=== PATIENT | female | born 1995 | race Caucasian/White ===

== ENCOUNTER 2017-08-26 16:26 | Inpatient (IN) ==
--- NOTE | 2017-08-26 16:43 | OB/GYN History & Physical ---
Date of Encounter: 08/26/17 Time of Encounter: 16:40 Assessment and Plan (1) and not yet delivered in third trimester Current visit: Yes Status: Acute (2) Modified White class B pregestational diabetes mellitus Current visit: Yes Status: Acute (3) Gestational hypertension Current visit: Yes Status: Acute Qualifiers: Trimester: third trimester Qualified Code(s): O13.3 - Gestational [ -induced] hypertension without significant proteinuria, third trimester (4) 38 weeks gestation of Current visit: No Status: Acute (5) Positive GBS test Current visit: Yes Status: Acute Penicillin 5 million units IV piggyback started will then due to 0.5 mg every 4 hours until delivery History of Present Illness HPI: Ms. Stevenson is a 22 year old female 5 para 1031 at 38-0/7 weeks who was sent in from the office for induction of labor due to hypertension proteinuria decreased movements and being a class B diabetic. Patient has been getting twice a week NSTs she had an NST last week where she complained of decreased movement the NST was reassuring but not that reactive she did not want to come to [facility] for a ultrasound for biophysical she was given kick counts and instructed to follow up today for another NST, this was performed today and was nonreactive again biophysical profile was 8 out of 8 however. Patient states she is just not really feeling the baby move. Patient is also complaining of some headaches does go into some Tylenol occasional blurred vision. Patient blood pressure was elevated with systolics of 156/74 she has gained 2-3 pounds since last and she is spilling protein today. She is not spilling any protein up until this point. Patient was a good 5-6 cm 80% 0 station also. This is a change from last week and a change from 1 week ago. This case was discussed with Dr. Chadwick who agreed due to the hypertension and the proteinuria the patient needs to be delivered. She denies any leaking of fluid but has been having a lot of back pain. Past Med Surg Social Fam HX - Past Medical History Source: patient, old records reviewed Medical history: diabetes (Type II diet controlled), hypertension Psychiatric history: no psych history - Past Surgical History Surgical History: other (Cyst removed from sternum) - Social History Smoking Status: Current every day smoker Smokeless Tobacco Status: No Alcohol use: none Drug use: none, marijuana (history) Occupational status: employed Current living situation: Home - Independent Activity Level: Independent ambulation Recent Out of Country Travel Within the Last 8 Weeks: No Exposure or Possible Exposure to Illness During Travel: No - Family History Mother Adopted: No Family Member Ethnicity: Non- Living Status: Still Living Hx Family Cardiac Disorders: Yes (htn) Hx Family Respiratory Disorders: No Hx Family Cancer: Yes (colon) Hx Family GI Disorders: No Hx Family Endocrine Disorder: No Hx Family Neuromuscular Disorders: No Hx Family Neurologic Disorders: No Hx Family HEENT Disorders: No Hx Family Autoimmune Disorders: No Obstetrical History - Pregnancies : 5 Para: 1 Term: 1 : 0 Ab's: 3 Livin Medications and Allergies Caplet 1 tab PO DAILY 01/09/16 [History] 3 Allergy/AdvReac Type Severity Reaction Status Date / Time acetaminophen [From Tylenol] Allergy Itching Verified 08/26/17 17:12 Review of System OB All systems PM: reviewed and no additional remarkable complaints except as stated - Eyes Eyes: bilateral: blurred vision (With scotoma) - Neurological Nerological: headache(s) Exam - Constitutional Constitutional: well developed, well nourished, mild distress - HEENT HEENT: EOMI, PERRL - Neck Neck exam: full ROM - Lungs Respiratory exam: CTAB - Abdomen Abdomen: Present: bowel sounds normal, gravid - Cervix Dilation: 5 Effacement: 80 Station: 0 - Uterus Uterus exam: Present: normal size Results Result Diagrams: 08/26/17 16:58 08/26/17 16:58 All other labs normal.
[2017-08-26] MEDS ORDERED: Famotidine 20 MG/2 ML VIAL IVP PRN ×2 (16:54→16:55)
[2017-08-26] MEDS ORDERED: Naloxone 0.4 MG/ML INJ IVP PRN ×2 (16:54→16:55)
[2017-08-26] MEDS ORDERED: *HR* Nalbuphine 20 MG/ML AMPUL IVP PRN (16:55)
[2017-08-26] MEDS ORDERED: Penicillin G Potassium 5,000,000 UNIT in 0.9 % Sodium Chloride Mini Bag 100 ML IVPB ONE (16:57)
[2017-08-26] MEDS ORDERED: Ringers Solution, Lactated 1,000 ML IVC SCH (17:00)
[2017-08-26 17:20] LABS: Basophils % 0.1 %; Eosinophils # 0.1 K/mcL (0.0-0.6); Eosinophils % 0.7 %; Hematocrit 39.6 % (35.3-44.9); Hemoglobin 13.5 g/dL (11.5-15.4); Immature Granulocytes % 0.4 % (0-4); Lymphocytes # 3.9 K/mcL (0.6-4.6); Lymphocytes % 23.3 %; Mean Corpuscular HGB Conc 34.1 g/dL (31.6-35.5); Mean Corpuscular Hemoglobin 29.7 pg (28.0-33.3); Mean Corpuscular Volume 87.2 fL (83.0-100.0); Mean Platelet Volume 10.8 fL (9.4-12.4); Monocytes # 1.3 K/mcL (0.0-1.3); Monocytes % 7.6 %; Neutrophils # 11.4 K/mcL (1.6-8.9); Platelet Count 253 K/mcL (140-400); Red Blood Count 4.54 M/mcL (3.82-4.97); Red Cell Distribution Width 13.3 % (11.5-14.5); Segmented Neutrophils % 67.9 %
[2017-08-26] MEDS: Ringers Solution, Lactated 1,000 ML IVC SCH ×2 (17:30→21:22)
[2017-08-26 17:52] LABS: Glucose 116 mg/dL (70-105)
[2017-08-26 19:02] LABS: Amphetamine Screen,Urine Negative ng/mL (Cutoff=1000); Barbiturate Screen,Urine Negative ng/mL (Cutoff=200); Benzodiazepines Screen,Urine Negative ng/mL (Cutoff=200); Cannabinoid Screen,Urine Negative ng/mL (Cutoff = 50); Cocaine Screen,Urine Negative ng/mL (Cutoff= 300); Opiate Screen,Urine Negative ng/mL (Cutoff=300); Phencyclidine Screen,Urine Negative ng/mL (Cutoff=25)
[2017-08-26 19:29] LABS: Alanine Aminotransferase 11 Units/L (7-52); Aspartate Amino Transferase 14 Units/L (13-39); BUN/Creatinine Ratio 15 (6-26); Blood Urea Nitrogen 8 mg/dL (6-20); Lactate Dehydrogenase 168 Units/L (140-271); Uric Acid 4.5 mg/dL (2.3-7.6); eGFR For African Americans > 60 (> 60); eGFR For Non-African Americans > 60 (> 60)
--- NOTE | 2017-08-26 19:56 | OB Labor Progress Note ---
Date of Encounter: 08/26/17 Time of Encounter: 19:50 Labor Progress Note - Subjective Subjective: Patient states she is getting uncomfortable still doing well - Cervix Cervix: 6/80/+1 - Heart Tones Heart Tones: heart tones 140s reactive - [place]: Contractions none seen at this time but states it coming every 3-5 minutes - Plan Plan: With the patient under epidural once comfortable and close to 4 hours we will artificially rupture
[2017-08-26] MEDS ORDERED: Epidural Premix (fent/bupiv) 110 ML EP ONE (20:14)
[2017-08-26] MEDS ORDERED: Epidural Premix (fent/bupiv) 110 ML EP SCH (20:15)
[2017-08-26] MEDS ORDERED: Bupivacaine-MPF 0.25% 10 ML VIAL ONE (20:15)
--- NOTE | 2017-08-26 20:22 | Anesthesia Evaluation PreOp ---
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: Denies Any Significant HX Other Medical History: Denies Any Significant HX, Diabetes Type II Anesthesia History: No Prior Anesthetic Complications : Yes (38) Test: Positive Alcohol Use: none Drug use: none Medications and Allergies Caplet 1 tab PO DAILY 01/09/16 [History] 3 Allergy/AdvReac Type Severity Reaction Status Date / Time acetaminophen [From Tylenol] Allergy Itching Verified 08/26/17 17:12 - Meds/Allergy Pre-op Review Medications Reviewed: Yes Allergies Reviewed: Yes (TYLENOL) Beta Blockers on Current Med List: No Anesthesia Results - Labs 08/26/17 16:58 08/26/17 16:58 Anesthesia Exam - HEENT Pupil (Motor): Pupils equal Mallampati: II Teeth: Normal, Edentulous Oral Opening: Greater than 3 - MOLDING MACHINE OPERATOR LOC: Oriented MOLDING MACHINE OPERATOR Motor: Normal RUE, Normal LUE, Normal RLE, Normal LLE, Normal Face MOLDING MACHINE OPERATOR Sensory: Normal: RUE, LUE, RLE, LLE, Face - Cardiac Rhythm: Regular Murmur: None JVD: No Carotid Bruit: No - Pulmonary Breath Sounds: bilateral Clear Respiratory Effort: Symmetrical Anesthesia Assess/Plan ASA Score: 2 Modified [place] Scale for Level of Consciousness: Cooperative, oriented, and tranquil Anesthetic Plan: Regional Autologous Blood: No Monitoring Plan: Standard Monitors
--- NOTE | 2017-08-26 20:26 | Anesthesia Procedures ---
Date of Encounter: 08/26/17 Time of Encounter: 20:30 Procedures: Anesthesia - Epidural/Spinal Patient ID/Chart reviewed: Yes Patient examined: Yes OB Eval: Gestational age: 38 OB Eval: : 5 OB Eval: Hx Para: 1 OB Eval: Dilated at (cm): 6 OB Eval: Contractions: Non-stressed pattern Consent Obtained: Yes Supplemental Oxygen: None/Room Air Site Prep: Aseptic Technique, Sterile prep and drape, Povidone-Iodine 1% Patient position: upright Amount of Local Anesthetic used: 3 Touhy Needle Gauge: 18 Touhy Needle Depth (cm): 5 Catheter Depth at Skin (cm): 6 Test Dose (1.5% Lido + Epi): Volume given (mls): 3 Test Dose Result: Negative Loading Dose: 0.25% Marcaine (mls): 20 Loading Dose Administered: Thru Catheter Infusion Rate (mls/hr): [address]: Tegaderm, Tape Interspace Used: L3-L4 Loss of Resistance (MANDIE): Yes Blood: No CSF: No Paresthesia: No Vitals + FHT's: stable throughout procedure. see nursing notes. placed per Dr. Motnoya
--- NOTE | 2017-08-26 21:05 | OB Labor Progress Note ---
Date of Encounter: 08/26/17 Time of Encounter: 21:00 Labor Progress Note - Subjective Subjective: comfortable after epidural - Cervix Cervix: 6-7/80/+1 AROM clear fluid - Heart Tones Heart Tones: FHT's 140's reactive - [place]: contractions every 2-3 min - Plan Plan: anticipate
[2017-08-26] MEDS: Penicillin G Potassium 2,500,000 UNIT in 0.9 % Sodium Chloride 100 ML IVPB SCH (21:22)
[2017-08-27] MEDS ORDERED: Oxytocin 20 units/ LR 1000 mL 20 UNIT/1,000 ML BAG IVC SCH ×2 (00:15→02:52)
[2017-08-27] MEDS: Penicillin G Potassium 2,500,000 UNIT in 0.9 % Sodium Chloride 100 ML IVPB SCH (00:57)
--- NOTE | 2017-08-27 02:40 | OB/GYN Procedure Note ---
Delivery - Delivery Date: 08/27/17 Provider: Tremayne Marquez Intrapartum events: none Delivery augmentation: rupture of membranes, pitocin Delivery monitor: external FHT, external uterine Anesthesia: epidural Estimated Blood Loss: 200 - (s) Infant A Delivery Date: 08/27/17 Delivery Time: 02:00 Presentation: vertex Position: [place]ORE Route of delivery: Gender: Female Viability: Viable Pounds: 7 Ounces: 6 Weight Gram: 3.35 kg at 1 minute: 8 at 5 mins: 9 Shoulder Dystocia: not encountered Specimens collected: cord blood Placenta: retained, complete extraction Cord: 3 umbilical vessels - Repair Episiotomy: none Laceration Description: Periurethral (right) - Complications Delivery complications: retained placenta - Comments Comments: viable female infant in THE[place] presentation 0200. 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 Retained placenta with manual extraction of the placenta required, uterus was explored no retained placenta palpated after removal. small right periurethral laceration noted repaired with 4 0 vicryl, cervix vagina and perineum intact, EBL 200 cc.
[2017-08-27] MEDS ORDERED: Acetaminophen 325 MG TABLET PO PRN (02:52)
[2017-08-27] MEDS ORDERED: Measles/Mumps/Rubella Vacc 0.5 ML VIAL SQ PRN (02:52)
[2017-08-27 06:35] LABS: Basophils % 0.1 %; Eosinophils # 0.1 K/mcL (0.0-0.6); Eosinophils % 0.6 %; Hematocrit 36.5 % (35.3-44.9); Hemoglobin 12.4 g/dL (11.5-15.4); Immature Granulocytes % 0.4 % (0-4); Immature Platelets 7.6 % (1.1-6.1); Lymphocytes # 4.2 K/mcL (0.6-4.6); Lymphocytes % 18.9 %; Mean Corpuscular Volume 88.2 fL (83.0-100.0); Mean Platelet Volume 10.6 fL (9.4-12.4); Monocytes % 4.6 %; Neutrophils # 16.7 K/mcL (1.6-8.9); Platelet Count 222 K/mcL (140-400); Red Blood Count 4.14 M/mcL (3.82-4.97); Red Cell Distribution Width 13.4 % (11.5-14.5); Segmented Neutrophils % 75.4 %
[2017-08-27 06:54] LABS: Alanine Aminotransferase 10 Units/L (7-52); Aspartate Amino Transferase 12 Units/L (13-39); BUN/Creatinine Ratio 13 (6-26); Blood Urea Nitrogen 8 mg/dL (6-20); Lactate Dehydrogenase 154 Units/L (140-271); Uric Acid 4.1 mg/dL (2.3-7.6); eGFR For African Americans > 60 (> 60); eGFR For Non-African Americans > 60 (> 60)
[2017-08-27] MEDS ORDERED: CeFAZolin Syringe 2,000MG/20 ML SYR IVPB SCH (08:00)
[2017-08-27] MEDS: Ibuprofen 600 MG TABLET PO PRN ×2 (08:44→15:51)
[2017-08-27] MEDS: Prenatal Vit/FA 1 EACH TABLET PO SCH (08:44)
[2017-08-27] MEDS ORDERED: NON-FORMULARY MEDICATION 1 EACH EACH (Prenatal Caplet 1 TAB) PO SCH (09:00)
[2017-08-27] MEDS ORDERED: CeFAZolin Premix DUPLEX 2,000 MG/50 ML BAG IVPB SCH ×2 (12:00→16:00)
[2017-08-28 08:21] VITALS: BP 114/70
--- NOTE | 2017-08-28 10:39 | Discharge Summary ---
Date of Encounter: 08/28/17 Time of Encounter: 10:37 - Discharge Diagnosis (1) Vaginal delivery Priority: Primary Status: Acute Comments: Pt states pain well managed on po pain medication, tolerates po diet, voiding, desires discharge. - Discharge Medications Prescriptions: Ibuprofen [Motrin] 600 mg PO Q6HR PRN #60 tablet PRN Reason: Cramping Docusate [Colace] 100 mg PO BID #60 capsule Home Medications: Caplet 1 tab PO DAILY 01/09/16 [History] Acetaminophen [Tylenol] 650 mg PO Q6HR PRN tablet 08/28/17 [Rx] Docusate [Colace] 100 mg PO BID #60 capsule 08/28/17 [Rx] Ibuprofen [Motrin] 600 mg PO Q6HR PRN #60 tablet 08/28/17 [Rx] Vit/FA 1 each PO DAILY tablet 08/28/17 [Rx] Allergies/Adverse Reactions: 3 Allergy/AdvReac Type Severity Reaction Status Date / Time acetaminophen [From Tylenol] Allergy Itching Verified 08/26/17 17:12 Data Procedures and tests throughout hospitalization: Laboratory Tests 08/26/17 08/26/17 08/26/17 16:58 16:58 18:25 WBC 16.8 H RBC 4.54 Hgb 13.5 Hct 39.6 MCV 87.2 MCH 29.7 MCHC 34.1 RDW 13.3 Plt Count 253 MPV 10.8 Immature Gran % 0.4 Seg Neutrophils % 67.9 Lymphocytes % 23.3 Monocytes % 7.6 Eosinophils % 0.7 Basophils % 0.1 Neutrophils # 11.4 H Lymphocytes # 3.9 Monocytes # 1.3 Eosinophils # 0.1 Basophils # 0.0 Immature Plt Fraction BUN 8 Creatinine 0.53 L Est GFR ( Amer) > 60 Est GFR (Non-Af Amer) > 60 BUN/Creatinine Ratio 15 Glucose 116 H Uric Acid 4.5 AST 14 ALT 11 Lactate Dehydrogenase 168 Urine Opiates Screen Negative Ur Barbiturates Screen Negative Ur Phencyclidine Scrn Negative Ur Amphetamines Screen Negative U Benzodiazepines Scrn Negative Urine Cocaine Screen Negative U Marijuana (THC) Screen Negative 08/27/17 08/27/17 06:25 06:25 WBC 22.2 H RBC 4.14 Hgb 12.4 Hct 36.5 MCV 88.2 MCH 30.0 MCHC 34.0 RDW 13.4 Plt Count 222 MPV 10.6 Immature Gran % 0.4 Seg Neutrophils % 75.4 Lymphocytes % 18.9 Monocytes % 4.6 Eosinophils % 0.6 Basophils % 0.1 Neutrophils # 16.7 H Lymphocytes # 4.2 Monocytes # 1.0 Eosinophils # 0.1 Basophils # 0.0 Immature Plt Fraction 7.6 H BUN 8 Creatinine 0.61 Est GFR ( Amer) > 60 Est GFR (Non-Af Amer) > 60 BUN/Creatinine Ratio 13 Glucose Uric Acid 4.1 AST 12 L ALT 10 Lactate Dehydrogenase 154 Urine Opiates Screen Ur Barbiturates Screen Ur Phencyclidine Scrn Ur Amphetamines Screen U Benzodiazepines Scrn Urine Cocaine Screen U Marijuana (THC) Screen Date of admission: 08/26/17 16:26 Primary care physician: PCP NASEEM Consults: 08/27/17 02:52 Consult to Inside Outside Sales Representative [CONS] Routine Comment: Vaginal delivery, consult needed Discharging clinician: Lory Schreiber Anticipated date of discharge: 08/28/17 - Patient Status Disposition: Home, Self-Care Condition: Good Functional capacity at discharge: independent ambulation Overall status at discharge: patient is back to baseline - Discharge Instructions Follow Up With: NASEEM,PCP [Primary Care Provider] - Tremayne Marquez, DO [Partnered Physician] - - Diet and Activity Activity: resume usual activities as tolerated Diet: regular diet Hospital Course Reason for admission: IUP at term Delivery: Episiotomy: none Laceration: other (Periurethral) Other procedures: none complications: retained placenta (Manual extraction of placenta at delivery) Discharge diagnosis: IUP at term delivered baby: female Hospital course: Delivery - Delivery Date: 08/27/17 Provider: Tremayne Marquez Intrapartum events: none Delivery augmentation: rupture of membranes, pitocin Delivery monitor: external FHT, external uterine Anesthesia: epidural Estimated Blood Loss: 200 - (s) A Delivery Date: 08/27/17 Delivery Time: 02:00 Presentation: vertex Position: [place] Route of delivery: Gender: Female Viability: Viable Pounds: 7 Ounces: 6 Weight Gram: 3.35 kg at 1 minute: 8 at 5 mins: 9 Shoulder Dystocia: not encountered Specimens collected: cord blood Placenta: retained, complete extraction Cord: 3 umbilical vessels - Repair Episiotomy: none Laceration Description: Periurethral (right) - Complications Delivery complications: retained placenta Stable in , and appropriate for discharge Time Attestation: Total time spent providing and/or coordinating discharge services: Time Spent: Less than 30 minutes Exam - Constitutional Vitals: Temp Pulse Resp BP Pulse Ox 98.1 F 92 16 114/70 98 08/28/17 07:45 08/28/17 07:45 08/28/17 07:45 08/28/17 07:45 08/28/17 07:45 General appearance IM: A&O X 3 - Respiratory Respiratory exam: Present: CTAB - Cardiovascular Cardiovascular exam IM: Present: RRR - GI/Abdominal GI/Abdominal exam IM: normal bowel sounds, soft - Uterine Tone: Firm Uterus Position: At Umbilicus - Extremities Exam Extremities exam IM: Present: normal capillary refill, normal inspection - Neurological Exam Neurological exam: normal gait, oriented X3 - Psychiatric Additional comments: Reports good mood,
[2017-08-28] MEDS: Prenatal Vit/FA 1 EACH TABLET PO SCH (11:03)
[2017-08-28] MEDS: Ibuprofen 600 MG TABLET PO PRN (11:03)
== END 2017-08-28 12:45 | disposition home or self-care (01) | DRG 774 ==
LOC: 1NENULAB 16:26 → 1NENUOBS 08-27 05:16
PROVIDERS: ADMIT Obstetrics & Gynecology; ATTEND Obstetrics & Gynecology

== ENCOUNTER 2019-04-16 10:00 | Inpatient (IN) ==
[2019-04-16] MEDS ORDERED: Famotidine 20 MG/2 ML VIAL IVP PRN (11:52)
[2019-04-16] MEDS ORDERED: Naloxone 0.4 MG/ML INJ IVP PRN (11:52)
[2019-04-16] MEDS ORDERED: Lidocaine 1% 20 ML MDV INFILT PRN (11:52)
[2019-04-16] MEDS ORDERED: Ondansetron 4 MG/2 ML VIAL IVP PRN (11:52)
[2019-04-16] MEDS ORDERED: Metoclopramide 10 MG/2 ML VIAL IVP PRN (11:52)
[2019-04-16] MEDS ORDERED: miSOPROStol 25 MCG TABLET PO STA (12:09)
[2019-04-16 13:04] LABS: Basophils % 0.1 %; Eosinophils # 0.2 K/mcL (0.0-0.6); Eosinophils % 1.2 %; Hematocrit 39.7 % (35.3-44.9); Hemoglobin 13.4 g/dL (11.5-15.4); Immature Granulocytes % 0.4 % (0-4); Lymphocytes # 2.6 K/mcL (0.6-4.6); Lymphocytes % 17.9 %; Mean Corpuscular HGB Conc 33.8 g/dL (31.6-35.5); Mean Corpuscular Volume 88.8 fL (83.0-100.0); Mean Platelet Volume 10.2 fL (9.4-12.4); Monocytes # 1.2 K/mcL (0.0-1.3); Neutrophils # 10.4 K/mcL (1.6-8.9); Platelet Count 269 K/mcL (140-400); Red Blood Count 4.47 M/mcL (3.82-4.97); Red Cell Distribution Width 12.8 % (11.5-14.5); Segmented Neutrophils % 72.4 %; White Blood Count 14.3 K/mcL (4.3-11.1)
[2019-04-16 13:13] LABS: Amphetamine Screen,Urine Negative ng/mL (Cutoff=1000); Barbiturate Screen,Urine Negative ng/mL (Cutoff=200); Benzodiazepines Screen,Urine Negative ng/mL (Cutoff=200); Cannabinoid Screen,Urine Negative ng/mL (Cutoff = 50); Cocaine Screen,Urine Negative ng/mL (Cutoff= 300); Opiate Screen,Urine Negative ng/mL (Cutoff=300); Phencyclidine Screen,Urine Negative ng/mL (Cutoff=25)
[2019-04-16] MEDS ORDERED: 0.9 % Sodium Chloride 1,000 ML ONE (15:25)
[2019-04-16] MEDS ORDERED: Oxytocin 20 units/ LR 1000 mL 20 UNIT/1,000 ML BAG IVC SCH (15:30)
[2019-04-16] MEDS ORDERED: Epidural Premix (fent/bupiv) 110 ML EP SCH (18:15)
[2019-04-16] MEDS ORDERED: *HR* Nalbuphine 10 MG/ML AMPUL IV PRN (18:33)
[2019-04-16] MEDS ORDERED: Ropivacaine/PF 0.2% 20 ML VIAL ONE (19:55)
[2019-04-16] MEDS ORDERED: *HR* FentaNYL (PF) 100 MCG/2 ML VIAL ONE (19:55)
[2019-04-17] MEDS ORDERED: Oxytocin 20 units/ LR 1000 mL 20 UNIT/1,000 ML BAG IVC SCH (00:24)
[2019-04-17] MEDS ORDERED: Measles/Mumps/Rubella Vacc 0.5 ML VIAL SQ PRN (00:24)
[2019-04-17] MEDS: Ringers Solution, Lactated 1,000 ML IVC SCH ×2 (00:51→07:48)
[2019-04-17 07:29] LABS: Basophils % 0.1 %; Eosinophils # 0.2 K/mcL (0.0-0.6); Eosinophils % 1.4 %; Hematocrit 40.7 % (35.3-44.9); Hemoglobin 13.5 g/dL (11.5-15.4); Immature Granulocytes % 0.6 % (0-4); Lymphocytes # 4.1 K/mcL (0.6-4.6); Lymphocytes % 25.6 %; Mean Corpuscular HGB Conc 33.2 g/dL (31.6-35.5); Mean Corpuscular Volume 90.4 fL (83.0-100.0); Mean Platelet Volume 10.1 fL (9.4-12.4); Monocytes # 1.3 K/mcL (0.0-1.3); Neutrophils # 10.2 K/mcL (1.6-8.9); Platelet Count 244 K/mcL (140-400); Segmented Neutrophils % 64.3 %; White Blood Count 15.9 K/mcL (4.3-11.1)
[2019-04-17] MEDS: Ibuprofen 600 MG TABLET PO PRN ×2 (07:46→16:05)
[2019-04-17] MEDS ORDERED: Ringers Solution, Lactated 1,000 ML ONE (07:47)
[2019-04-17] MEDS ORDERED: Morphine Sulfate 2 MG/ML SYRINGE IVP PRN (08:04)
[2019-04-17] MEDS ORDERED: *HR* HYDROcodone/Acet 5/325 mg TABLET PO PRN (08:04)
[2019-04-17] MEDS ORDERED: Prenatal Vit/FA 1 EACH TABLET PO SCH (09:00)
[2019-04-17] MEDS ORDERED: *HR* FentaNYL (PF) 100 MCG/2 ML VIAL ONE (10:04)
[2019-04-17] MEDS ORDERED: Lidocaine -MPF 2% 2 ML VIAL ONE (10:04)
[2019-04-17] MEDS ORDERED: *HR* Midazolam HCl 2 MG/2 ML VIAL ONE (10:04)
[2019-04-17] MEDS ORDERED: *HR* Propofol 200 MG/20 ML VIAL IVP ONE (10:04)
[2019-04-17] MEDS ORDERED: Dexamethasone 4 MG/ML VIAL ONE (10:06)
[2019-04-17 16:32] VITALS: BP 117/77
== END 2019-04-17 21:45 | disposition home or self-care (01) | DRG 806 ==
LOC: 1NENULAB 11:19 → 1NENUOBS 04-17 01:11
PROVIDERS: ADMIT Obstetrics & Gynecology; ATTEND Obstetrics & Gynecology

== ENCOUNTER → 2022-01-22 13:10 | Observation (INO) ==
[2022-01-22 12:28] LABS: Basophils % 0.1 %; Eosinophils # 0.2 K/mcL (0.0-0.6); Eosinophils % 1.2 %; Hematocrit 40.7 % (35.3-44.9); Hemoglobin 14.1 g/dL (11.5-15.4); Immature Granulocytes % 0.7 % (0-4); Lymphocytes # 3.6 K/mcL (0.6-4.6); Lymphocytes % 24.7 %; Mean Corpuscular HGB Conc 34.6 g/dL (31.6-35.5); Mean Corpuscular Hemoglobin 29.9 pg (28.0-33.3); Mean Corpuscular Volume 86.2 fL (83.0-100.0); Mean Platelet Volume 10.5 fL (9.4-12.4); Monocytes # 1.2 K/mcL (0.0-1.3); Monocytes % 8.1 %; Neutrophils # 9.5 K/mcL (1.6-8.9); Platelet Count 276 K/mcL (140-400); Red Blood Count 4.72 M/mcL (3.82-4.97); Red Cell Distribution Width 13.2 % (11.5-14.5); Segmented Neutrophils % 65.2 %; White Blood Count 14.7 K/mcL (4.3-11.1)
[2022-01-22 13:01] LABS: Protein/Creatinine Ratio,Urine 0.31 mg/mg (0.00-0.20)
[2022-01-22 13:18] LABS: Alanine Aminotransferase 8 Units/L (7-52); Aspartate Amino Transferase 15 Units/L (13-39); BUN/Creatinine Ratio 11 (6-26); Blood Urea Nitrogen 6 mg/dL (6-20); Lactate Dehydrogenase 161 Units/L (140-271); Uric Acid 4.9 mg/dL (2.3-7.6); eGFR For African Americans > 60 (> 60); eGFR For Non-African Americans > 60 (> 60)
== END | disposition home or self-care (01) ==
LOC: 1NENULAB
PROVIDERS: ADMIT Obstetrics & Gynecology; ATTEND Obstetrics & Gynecology

== ENCOUNTER 2022-02-02 06:08 | Inpatient (IN) ==
[2022-02-02] MEDS ORDERED: Azithromycin 500 MG in 0.9 % Sodium Chloride 250 ML IVPB PRN (06:22)
[2022-02-02] MEDS ORDERED: *HR* Nalbuphine 10 MG/ML AMPUL IV PRN (06:22)
[2022-02-02] MEDS ORDERED: Naloxone 0.4 MG/ML INJ IVP PRN (06:22)
[2022-02-02] MEDS ORDERED: Ondansetron 4 MG/2 ML VIAL IVP PRN (06:22)
[2022-02-02] MEDS ORDERED: *HR* FentaNYL (PF) 100 MCG/2 ML VIAL IVP PRN (06:22)
[2022-02-02] MEDS ORDERED: Metoclopramide 10 MG/2 ML VIAL IVP PRN (06:22)
[2022-02-02] MEDS ORDERED: Famotidine 20 MG/2 ML VIAL IVP PRN (06:22)
[2022-02-02] MEDS ORDERED: miSOPROStoL 25 MCG TABLET PO PRN (06:24)
[2022-02-02 06:56] LABS: Basophils % 0.1 %; Eosinophils # 0.2 K/mcL (0.0-0.6); Hemoglobin 13.7 g/dL (11.5-15.4); Immature Granulocytes % 0.5 % (0-4); Lymphocytes # 4.6 K/mcL (0.6-4.6); Lymphocytes % 30.1 %; Mean Corpuscular HGB Conc 34.3 g/dL (31.6-35.5); Mean Corpuscular Hemoglobin 29.7 pg (28.0-33.3); Mean Corpuscular Volume 86.8 fL (83.0-100.0); Mean Platelet Volume 10.6 fL (9.4-12.4); Monocytes % 6.4 %; Neutrophils # 9.5 K/mcL (1.6-8.9); Platelet Count 260 K/mcL (140-400); Red Blood Count 4.61 M/mcL (3.82-4.97); Red Cell Distribution Width 13.4 % (11.5-14.5); Segmented Neutrophils % 61.9 %; White Blood Count 15.3 K/mcL (4.3-11.1)
[2022-02-02] MEDS ORDERED: Penicillin G Potassium 5,000,000 UNIT in 0.9 % Sodium Chloride Mini Bag 100 ML IVPB ONE (07:02)
[2022-02-02] MEDS: Ringers Solution, Lactated 1,000 ML IVC SCH ×2 (07:31→14:50)
[2022-02-02] MEDS ORDERED: EPHEDrine 50 MG/ML VIAL IVP PRN (08:09)
[2022-02-02] MEDS ORDERED: Epidural Premix (fent/bupiv) 110 ML EP SCH (08:15)
[2022-02-02] MEDS ORDERED: *HR* Phenylephrine 10 MG/ML VIAL ONE (09:45)
[2022-02-02 11:00] LABS: Amphetamine Screen,Urine Negative ng/mL (Cutoff=1000); Barbiturate Screen,Urine Negative ng/mL (Cutoff=200); Benzodiazepines Screen,Urine Negative ng/mL (Cutoff=200); Cannabinoid Screen,Urine Negative ng/mL (Cutoff = 50); Cocaine Screen,Urine Negative ng/mL (Cutoff= 300); Opiate Screen,Urine Negative ng/mL (Cutoff=300); Phencyclidine Screen,Urine Negative ng/mL (Cutoff=25)
[2022-02-02] MEDS: Penicillin G Potassium 2,500,000 UNIT/105 ML MLS IVPB SCH ×2 (11:08→14:50)
[2022-02-02] MEDS ORDERED: Oxytocin 30 UNIT/503 ML BAG IVC SCH ×2 (14:00→21:30)
[2022-02-02] MEDS ORDERED: Ondansetron ODT 4 MG TAB.RAPDIS SL PRN (21:30)
[2022-02-02] MEDS ORDERED: Lanolin 7 G OINT...G. TP PRN (21:30)
[2022-02-02] MEDS ORDERED: OXYTOCIN/RINGERS LACTATE 10 UNIT/166.6 ML BAG IVC ONE (21:30)
[2022-02-02] MEDS ORDERED: Benzocaine/Menthol 56 GM AEROSOL SPRAY TP PRN (21:30)
[2022-02-02] MEDS: Ibuprofen 600 MG TABLET PO SCH (22:00)
[2022-02-02] MEDS: Acetaminophen 325 MG TABLET PO SCH (22:00)
[2022-02-03 04:55] VITALS: O2SAT 97
[2022-02-03 05:04] LABS: Basophils % 0.2 %; Eosinophils # 0.2 K/mcL (0.0-0.6); Eosinophils % 0.9 %; Hematocrit 39.5 % (35.3-44.9); Hemoglobin 13.5 g/dL (11.5-15.4); Immature Granulocytes % 0.5 % (0-4); Lymphocytes # 5.1 K/mcL (0.6-4.6); Lymphocytes % 27.6 %; Mean Corpuscular HGB Conc 34.2 g/dL (31.6-35.5); Mean Corpuscular Hemoglobin 29.8 pg (28.0-33.3); Mean Corpuscular Volume 87.2 fL (83.0-100.0); Mean Platelet Volume 10.3 fL (9.4-12.4); Monocytes # 1.5 K/mcL (0.0-1.3); Monocytes % 8.1 %; Neutrophils # 11.6 K/mcL (1.6-8.9); Platelet Count 226 K/mcL (140-400); Red Blood Count 4.53 M/mcL (3.82-4.97); Red Cell Distribution Width 13.4 % (11.5-14.5); Segmented Neutrophils % 62.7 %; White Blood Count 18.5 K/mcL (4.3-11.1)
[2022-02-03] MEDS: Acetaminophen 325 MG TABLET PO SCH ×2 (05:20→15:51)
[2022-02-03] MEDS: Ibuprofen 600 MG TABLET PO SCH ×2 (05:20→15:51)
[2022-02-03] MEDS ORDERED: Prenatal Vit/FA 1 EACH TABLET PO SCH (09:00)
[2022-02-03 15:56] VITALS: BP 105/66; PULSE 81; TEMP 98
== END 2022-02-03 18:41 | disposition home or self-care (01) | DRG 806 ==
LOC: 1NENULAB 06:08 → 1NENUOBS 21:39
PROVIDERS: ADMIT Obstetrics & Gynecology; ATTEND Obstetrics & Gynecology